=== PATIENT | female | born 1985 | race Caucasian/White ===

== ENCOUNTER 2017-01-28 08:58 | Emergency (ER) | payer OTHER ==
[~2017-01-28] VITALS: Ht 165.1 cm; Wt 97.0 kg
[~2017-01-28 08:58] MED LIST: IBUP100T38 PO; NORCO PO
[2017-01-28 10:32] LABS: CHLORIDE 102 mEq/L (98-107)
[2017-01-28 10:34] LABS: BASOPHILS % 0.4 % (0.0-2.0); EOSINOPHILS % 0.9 % (0.0-5.0); HEMATOCRIT. 39.7 % (36.0-48.0); HEMOGLOBIN. 13.5 g/dL (12.0-16.0); LYMPHOCYTES % 21.2 % (20.0-50.0); MEAN CORPUSCULAR VOLUME 94.4 fL (81.0-99.0); MONOCYTES % 4.7 % (2.0-8.0); NEUTROPHILS % 72.8 % (40.0-76.0); PLATELET 197 x1000/uL (130-400); RED CELL DISTRIBUTION WIDTH 12.5 % (11.6-14.6)
[2017-01-28 10:45] LABS: CARBON DIOXIDE 26 mEq/L (21-32)
[2017-01-28 10:54] LABS: B-HCG QUANTITATIVE 16250 mIU/mL (<3)
[2017-01-28 11:07] LABS: HCG SCREEN POSITIVE
[2017-01-28 12:45] VITALS: BP 144/72
[2017-01-28 13:19] LABS: CLARITY URINE CLOUDY (CLEAR); COLOR URINE YELLOW (YELLOW); GLUCOSE URINE NEGATIVE (NEGATIVE); KETONES URINE NEGATIVE (NEGATIVE); LEUKOCYTE ESTERASE URINE 2+ (NEGATIVE); NITRITE URINE NEGATIVE (NEGATIVE); OCCULT BLOOD URINE 2+ (NEGATIVE); PROTEIN URINE NEGATIVE (NEGATIVE)
== END 2017-01-28 14:22 | disposition home or self-care (01) ==
LOC: ER 10:15
DX: O23.41 Unspecified infection of urinary tract in pregnancy, first trimester (principal); N39.0 Urinary tract infection, site not specified; Z3A.01 Less than 8 weeks gestation of pregnancy
CPT/HCPCS: 36415; 76801; 80048; 81001; 84702; 84703; 85025; 86850; 86900; 99285

== ENCOUNTER 2017-02-02 06:02 | Emergency (ER) | payer OTHER ==
[~2017-02-02] VITALS: Ht 160 cm; Wt 61.0 kg
[2017-02-02 10:11] LABS: BASOPHILS % 0.5 % (0.0-2.0); EOSINOPHILS % 0.5 % (0.0-5.0); HEMATOCRIT. 37.9 % (36.0-48.0); HEMOGLOBIN. 12.9 g/dL (12.0-16.0); LYMPHOCYTES % 18.8 % (20.0-50.0); MEAN CORPUSCULAR VOLUME 94.4 fL (81.0-99.0); MEAN PLATELET VOLUME 8.6 fl (7.4-10.4); MONOCYTES % 4.1 % (2.0-8.0); NEUTROPHILS % 76.1 % (40.0-76.0); PLATELET 211 x1000/uL (130-400); RED BLOOD CELL COUNT 4.01 mill/uL (4.2-5.4); RED CELL DISTRIBUTION WIDTH 12.4 % (11.6-14.6)
[2017-02-02 10:20] LABS: PROTHROMBIN TIME 10.6 sec (9.4-11.6)
[2017-02-02 10:29] LABS: HCG SCREEN POSITIVE
[2017-02-02 10:40] LABS: CLARITY URINE CLOUDY (CLEAR); COLOR URINE YELLOW (YELLOW); GLUCOSE URINE NEGATIVE (NEGATIVE); KETONES URINE NEGATIVE (NEGATIVE); LEUKOCYTE ESTERASE URINE 2+ (NEGATIVE); NITRITE URINE NEGATIVE (NEGATIVE); OCCULT BLOOD URINE 3+ (NEGATIVE); PROTEIN URINE TRACE (NEGATIVE); SPECIFIC GRAVITY URINE 1.016 (1.005-1.030); UROBILINOGEN URINE 0.2 E.U./dL (0.2-1.0)
[2017-02-02 13:12] VITALS: BP 131/84
== END 2017-02-02 13:30 | disposition home or self-care (01) ==
LOC: ER 06:02
DX: O23.42 Unspecified infection of urinary tract in pregnancy, second trimester (principal); O20.9 Hemorrhage in early pregnancy, unspecified; N39.0 Urinary tract infection, site not specified; Z3A.20 20 weeks gestation of pregnancy
CPT/HCPCS: 36415; 76801; 81001; 84702; 84703; 85025; 85610; 85730; 86850; 86900; 99285

== ENCOUNTER 2019-04-08 18:17 | Emergency (ER) | payer OTHER ==
[~2019-04-08] VITALS: Ht 165.1 cm; Wt 105.4 kg
[2019-04-08 18:30] VITALS: BP 162/88
== END 2019-04-08 21:47 | disposition left against medical advice (07) ==
LOC: ER 18:17
DX: Z53.21 Procedure and treatment not carried out due to patient leaving prior to being seen by health care provider (principal)
CPT/HCPCS: 82962

== ENCOUNTER 2022-02-19 23:34 | Emergency (ER) | payer OTHER ==
[~2022-02-19] VITALS: Ht 165.1 cm; Wt 102.0 kg
[~2022-02-19 23:34] MED LIST changes: -IBUP100T38 PO; +IBUP100T61 PO
[2022-02-20 01:07] LABS: BASOPHILS % 0.5 % (0.0-2.0); EOSINOPHILS % 2.2 % (0.0-5.0); HEMATOCRIT. 38.3 % (36.0-48.0); HEMOGLOBIN. 12.9 g/dL (12.0-16.0); LYMPHOCYTES % 24.1 % (20.0-50.0); MEAN CORPUSCULAR HEMOGLOBIN 32.2 pg (28.0-32.0); MEAN CORPUSCULAR VOLUME 95.3 fL (81.0-99.0); MEAN PLATELET VOLUME 8.9 fl (7.4-10.4); MONOCYTES % 6.2 % (2.0-8.0); PLATELET 225 x1000/uL (130-400); RED BLOOD CELL COUNT 4.01 mill/uL (4.2-5.4); RED CELL DISTRIBUTION WIDTH 12.6 % (11.6-14.6)
[2022-02-20 01:14] LABS: CHLORIDE 103 mEq/L (98-107)
[2022-02-20 01:36] LABS: B-HCG QUANTITATIVE 3733 mIU/mL (<3)
[2022-02-20 02:24] LABS: CLARITY URINE TURBID (CLEAR); COLOR URINE RED (YELLOW); KETONES URINE NEGATIVE (NEGATIVE); LEUKOCYTE ESTERASE URINE 1+ (NEGATIVE); NITRITE URINE NEGATIVE (NEGATIVE); OCCULT BLOOD URINE 3+ (NEGATIVE); PH URINE 5.5 (4.5-8.0); PROTEIN URINE 1+ (NEGATIVE); SPECIFIC GRAVITY URINE 1.026 (1.005-1.030)
[2022-02-20] MEDS ORDERED: METHOTREXATE SODIUM/PF 50 MG/2 ML VIAL IM NR (05:30)
[2022-02-20 11:50] VITALS: BP 119/72
== END 2022-02-20 12:40 | disposition home or self-care (01) ==
LOC: ER 23:34 → CANBEDREQ 02-20 05:43 → ER 02-20 12:40
DX: O00.90 Unspecified ectopic pregnancy without intrauterine pregnancy (principal); O08.9 Unspecified complication following an ectopic and molar pregnancy; O26.891 Other specified pregnancy related conditions, first trimester; Z3A.01 Less than 8 weeks gestation of pregnancy
CPT/HCPCS: 36415; 76801; 76817; 80053; 81003; 84702; 85025; 86850; 86900; 86901; 96372; 99291; J9260

== ENCOUNTER 2022-03-25 01:09 | Emergency (ER) | payer MEDICAID, OTHER ==
[~2022-03-25] VITALS: Ht 165.1 cm; Wt 102.0 kg
[2022-03-25] MEDS ORDERED: ONDANSETRON HCL 4MG/2ML INJ IV ONE (01:45)
[2022-03-25] MEDS ORDERED: MORPHINE SULFATE 4 MG/ML CPJ (NOT FOR IM USE) IV ONE (01:45)
[2022-03-25] MEDS ORDERED: SODIUM CHLORIDE 0.9% 1,000 ML IV ONE (01:45)
[2022-03-25 02:07] LABS: BASOPHILS % 0.4 % (0.0-2.0); HEMATOCRIT. 38.9 % (36.0-48.0); HEMOGLOBIN. 13.2 g/dL (12.0-16.0); LYMPHOCYTES % 21.3 % (20.0-50.0); MEAN CORPUSCULAR HEMOGLOBIN 32.4 pg (28.0-32.0); MEAN CORPUSCULAR VOLUME 95.4 fL (81.0-99.0); MEAN PLATELET VOLUME 8.9 fl (7.4-10.4); MONOCYTES % 5.2 % (2.0-8.0); NEUTROPHILS % 71.1 % (40.0-76.0); PLATELET 244 x1000/uL (130-400); RED BLOOD CELL COUNT 4.08 mill/uL (4.2-5.4); RED CELL DISTRIBUTION WIDTH 12.7 % (11.6-14.6)
[2022-03-25 02:09] LABS: CLARITY URINE TURBID (CLEAR); COLOR URINE RED (YELLOW); KETONES URINE NEGATIVE (NEGATIVE); LEUKOCYTE ESTERASE URINE 2+ (NEGATIVE); NITRITE URINE POSITIVE (NEGATIVE); OCCULT BLOOD URINE 2+ (NEGATIVE); PROTEIN URINE 2+ (NEGATIVE); SPECIFIC GRAVITY URINE 1.025 (1.005-1.030); UROBILINOGEN URINE 0.2 E.U./dL (0.2-1.0)
[2022-03-25 02:13] LABS: CHLORIDE 102 mEq/L (98-107)
[2022-03-25 02:15] LABS: INR 0.9; PROTHROMBIN TIME 10.1 sec (9.6-11.0)
[2022-03-25 02:24] LABS: B-HCG QUANTITATIVE 646 mIU/mL (<3)
[2022-03-25] MEDS ORDERED: METHOTREXATE SODIUM/PF 50 MG/2 ML VIAL IM SCH ×2 (09:15→10:00)
[2022-03-25 11:06] VITALS: BP 118/82
== END 2022-03-25 11:08 | disposition home or self-care (01) ==
LOC: ER 01:09
DX: O00.00 Abdominal pregnancy without intrauterine pregnancy (principal); O26.891 Other specified pregnancy related conditions, first trimester; Z3A.01 Less than 8 weeks gestation of pregnancy
CPT/HCPCS: 36415; 76801; 76817; 80053; 81003; 84702; 85025; 85610; 86850; 86900; 86901; 96361; 96372; 96374; 96375; 99285; J2270; J2405; J7030; J9260; Z7610

== ENCOUNTER 2022-04-04 13:22 | Emergency (ER) | payer MEDICAID ==
[~2022-04-04] VITALS: Ht 165.1 cm; Wt 103.0 kg
[2022-04-04 15:09] LABS: CHLORIDE 100 mEq/L (98-107)
[2022-04-04 15:12] LABS: PROTHROMBIN TIME 10.5 sec (9.6-11.0)
[2022-04-04 15:20] LABS: B-HCG QUANTITATIVE 725 mIU/mL (<3)
[2022-04-04 15:26] LABS: BASOPHILS % 0.3 % (0.0-2.0); EOSINOPHILS % 2.6 % (0.0-5.0); HEMATOCRIT. 36.2 % (36.0-48.0); HEMOGLOBIN. 12.3 g/dL (12.0-16.0); MEAN CORPUSCULAR HEMOGLOBIN 32.6 pg (28.0-32.0); MEAN PLATELET VOLUME 8.2 fl (7.4-10.4); MONOCYTES % 5.6 % (2.0-8.0); NEUTROPHILS % 64.5 % (40.0-76.0); PLATELET 276 x1000/uL (130-400); RED BLOOD CELL COUNT 3.77 mill/uL (4.2-5.4); RED CELL DISTRIBUTION WIDTH 12.9 % (11.6-14.6)
[2022-04-04 16:47] VITALS: BP 139/62
== END 2022-04-04 17:32 | disposition home or self-care (01) ==
LOC: ER 13:22
DX: O00.90 Unspecified ectopic pregnancy without intrauterine pregnancy (principal); Z98.890 Other specified postprocedural states; Z90.49 Acquired absence of other specified parts of digestive tract
CPT/HCPCS: 36415; 76801; 80053; 84702; 85025; 86850; 86900; 99284